=== PATIENT | female | born 1970 | race Caucasian/White ===

== ENCOUNTER 2023-11-04 12:43 | Emergency (ER) | payer BC, SELFPAY ==
--- NOTE | ~2023-11-04 | CT_ITS ---
EXAMINATION: CT abdomen pelvis wo con DATE: 11/04/2023 13:35 INDICATION: Low abdominal pain. TECHNIQUE: Computed tomography (CT) of the abdomen and pelvis was performed without intravenous contr ast. Automated exposure control and iterative reconstruction technique were employed. The dose-length product was 361.51 mGy-cm. COMPARISON: None. FINDINGS: The visualized portions of the lung bases demonstrate mild atelectasis. No pleural effusion . The heart size is normal. No pericardial effusion. There is a small sliding hiatal hernia. The live r, spleen, gallbladder, pancreas, and adrenal glands are normal. There are 8 mm and 3 mm stones in ri ght kidney. There are greater than 10 stones in left kidney measuring up to 9 mm. There is cortical t hinning of left kidney. There is severe left hydronephrosis. There is a 3 mm stone at left ureteropel suzie junction. There is diverticulosis of the colon without evidence of diverticulitis. There are no d ilated loops of bowel. The appendix is normal. There are no pathologically enlarged lymph nodes. Ther e is no free intraperitoneal fluid. There is moderate lumbar spondylosis. IMPRESSION: 1. 3 mm stone at left ureteropelvic junction with severe left hydronephrosis. 2. Bilateral nonobstructing kidney stones. Reviewed, dictated and finalized at location A.
[2023-11-04 12:48] VITALS: BP 139/97; PULSE 67; RESP 18; TEMP 37.1; O2SAT 97
[2023-11-04] MEDS: Please add drug allergy info to patient profile. 1 EACH XX (13:07)
[2023-11-04 13:20] LABS: Basophils Percent Auto 0.4 % (0.2-1.2); Eosinophils Percent Auto 0.1 % (0-4.4); Hematocrit 45.4 % (37.0-47.0); Hemoglobin 15.8 g/dL (12.0-15.0); Immature Granulocyte Absolute 0.02 K/mm3 (0.00-0.031); Immature Granulocyte Percent A 0.3 % (0-0.5); Lymphocytes Absolute Auto 1.39 K/mm3 (0.9-3.2); Lymphocytes Percent Auto 20.4 % (18.3-44.2); Mean Corpuscular HGB Conc 34.8 g/dl (32-36); Mean Corpuscular Hemoglobin 29.6 pg (26-34); Mean Corpuscular Volume 85.2 fl (80-100); Mean Platelet Volume 9.6 fl (7.4-10.4); Monocytes Absolute Auto 0.4 K/mm3 (0.1-0.6); Neutrophils Absolute Auto 4.9 K/mm3 (1.3-6.7); Neutrophils Percent Auto 72.8 % (45.5-73.1); Platelet Count Result 310 k/mm3 (150-375); Red Blood Count 5.33 M/mm3 (4.2-5.4); Red Cell Distribution Width 12.7 % (11.5-14.5); White Blood Count 6.8 K/mm3 (4.5-10.0)
[2023-11-04 13:23] LABS: Appearance Urine Cloudy (Clear); Bacteria Urine 1+ /hpf; Bilirubin Urine Negative (Negative); Blood Urine 3+ (Negative); Color Urine Yellow (Yellow); Glucose Urine UA Negative (Negative); Ketones Urine Trace mg/dL (Negative); Leukocyte Esterase Ur 1+ LEU/UL (Negative); Nitrate Urine Negative (Negative); Protein Urine 2+ mg/dL (Negative); RBC Urine >100 /hpf (0-2); Specific Grav Ur 1.022 (1.001-1.035); Squamous Epithelial Cell Urine Moderate /hpf (Few); Urobilinogen Urine 0.2 mg/dL (<2.0); WBC Urine 21-50 /hpf (0-3); pH Urine 5.5 (5.0-9.0)
[2023-11-04 13:27] LABS: Add Urine Microscopic? YES
[2023-11-04 13:28] LABS: Alanine Aminotransferase 23 U/L (6-35); Albumin Level 4.8 g/dL (3.5-5.1); Alkaline Phosphatase 83 U/L (38-126); Anion Gap 9 mmol/L (4-12); Aspartate Amino Transferase 28 U/L (14-36); Bilirubin,Total 0.6 mg/dL (0.2-1.3); Blood Urea Nitrogen 16 mg/dL (7-17); Carbon Dioxide 23 mmol/L (22-30); Chloride 107 mmol/L (98-107); Estimated CRCL calculation 59 ml/min; Estimated Glomerular Filt Rate 58; Glucose 129 mg/dL (65-110); Lipase 245 U/L (23-300); Potassium 3.8 mmol/L (3.4-5.0); Sodium 139 mmol/L (137-145)
[2023-11-04] MEDS: SODIUM CHLORIDE 0.9% IV 1,000 ML 999 ML IV CONT (13:50)
[2023-11-04] MEDS: HYDROmorphone HCL INJ (*CRX) 1 MG/ML SYR 0.5 MG IV PUSH (13:50)
[2023-11-04] MEDS: ONDANSETRON INJ 4 MG/2 ML VIAL IV PUSH (13:50)
--- NOTE | 2023-11-04 14:25 | ED.ABDPAIN ---
HPI - Abdominal Pain General Chief Complaint: Abdominal Pain Stated Complaint: abd pain Time Seen by Provider: 11/04/23 12:45 Source: patient Mode of arrival: ambulatory Limitations: no limitations History of Present Illness HPI narrative: This is a 53-year-old female that presents to the emergency department for lower abdominal pain. Associated with nausea and vomiting. Also reports some hematuria. Reports history of kidney stones in that her pain feels similar. Denies fevers or dysuria. Related Data Allergies Allergy/AdvReac Type Severity Reaction Status Date / Time morphine AdvReac Itching Verified 11/04/23 13:06 Review of Systems Review of Systems: CONSTITUTIONAL: Denies fever GASTROINTESTINAL: Reports abdominal pain, nausea, vomiting GENITOURINARY: Reports hematuria. Denies dysuria All systems reviewed & are unremarkable except as noted in HPI and below PMFSH Past Medical History Medical History (Updated 11/04/23 @ 14:38 by Althea Bey PA-C) History of hypertension History of hypothyroidism Social History Social History (Updated 11/04/23 @ 14:39 by Althea Bey PA-C) Substance use: never Exam Narrative: GENERAL: Well-appearing, well-nourished, and in no acute distress. HEAD: Normocephalic, atraumatic. EYES: EOMI. CHEST: Clear to auscultation. No respiratory distress. No wheezes rales or rhonchi HEART: Regular rate and rhythm. No murmur heard. Normal peripheral pulses. ABDOMEN: Soft, nontender, nondistended, normal active bowel sounds. EXTREMITIES: Normal range of motion. No edema. SKIN: Warm, dry, no rash. NEURO: No focal deficits. Alert and oriented x3. PSYCH: Normal mood and affect Course Course Emergency Course: Patient updated on her workup. Offered admission for further management/pain control. She would like to follow up outpatient with her Urologist Vital Signs Vital signs: Vital Signs Temperature 98.8 F 11/04/23 12:48 Pulse Rate 67 11/04/23 12:48 Respiratory Rate 18 11/04/23 12:48 Blood Pressure 139/97 H 11/04/23 12:48 Pulse Oximetry 97 11/04/23 12:48 Oxygen Delivery Room Air 11/04/23 12:48 Temperature 98.8 F 11/04/23 12:48 Pulse Rate 67 11/04/23 12:48 Respiratory Rate 18 11/04/23 12:48 Blood Pressure 139/97 H 11/04/23 12:48 Pulse Oximetry 97 11/04/23 12:48 Oxygen Delivery Room Air 11/04/23 12:48 MDM - Abdominal Pain MDM Narrative Medical decision making narrative: Patient presents to the emergency department for lower abdominal pain, nausea and vomiting. History of kidney stones. She is afebrile and nontoxic appearing. Her vitals are stable. CBC without leukocytosis. Shows some hemoconcentration. Patient hydrated with L of IV fluids in the ED. Metabolic panel without concerning findings. UA with 21-50 white blood cells, also moderate squamous epithelial cells. Patient is not experiencing any dysuria. This will be sent for culture. Patient presumptively started on antibiotics. Given 1st dose IV. CT abdomen and pelvis shows a 3 mm stone at the left UPJ. Patient updated on her workup. Offered admission for further management/pain control. She would like to follow up outpatient with her Urologist. She was given warnings to return to the ER Differential Diagnosis Differential diagnosis: Likely calculus of kidney and diverticulitis Lab Data Attestation: I reviewed the patient's lab results. 11/04/23 13:04 11/04/23 13:04 Labs: Lab Results 11/04/23 11/04/23 Range/Units 13:04 13:07 WBC 6.8 (4.5-10.0) K/mm3 RBC 5.33 (4.2-5.4) M/mm3 Hgb 15.8 H (12.0-15.0) g/dL Hct 45.4 (37.0-47.0) % MCV 85.2 (80-100) fl MCH 29.6 (26-34) pg MCHC 34.8 (32-36) g/dl RDW 12.7 (11.5-14.5) % Plt Count 310 (150-375) k/mm3 MPV 9.6 (7.4-10.4) fl Immature Gran % (Auto) 0.3 (0-0.5) % Neut % (Auto) 72.8 (45.5-73.1) % Lymph % (Auto) 20.4 (18.3-44.2)
== END 2023-11-04 14:47 | disposition home or self-care (01) ==
PROVIDERS: Emergency Provider Physician Assistant
DX: N13.2 Hydronephrosis with renal and ureteral calculous obstruction (principal); R82.81 Pyuria; I10 Essential (primary) hypertension; E03.9 Hypothyroidism, unspecified
CPT/HCPCS: 36415; 74176; 80053; 81001; 83690; 85025; 87086; 87088; 96365; 96375; 99284; J0696; J1170; J2405; J7030